=== PATIENT | female | born 1970 | race Hispanic/Latino ===

== ENCOUNTER 2019-01-08 14:36 | Observation (INO) | payer BC ==
[2019-01-08] VITALS (8 sets, daily range): BP systolic 116–148; BP diastolic 61–77
[~2019-01-08] VITALS: Ht 154.9 cm; Wt 88.5 kg
[2019-01-08 15:22] LABS: MEAN CORPUSCULAR HGB CONC 27.1 g/dL (32.0-36.0); MEAN CORPUSCULAR VOLUME 55.5 fL (79-99); NUCLEATED RED BLOOD CELLS 0.1 % (0.0-0.19); PLATELET COUNT (AUTO) 564 K/uL (130-400); RED BLOOD CELL COUNT(AUTO) 4.32 MIL/uL (4.00-5.50); RED CELL DISTRIBUTION WIDTH 21.4 % (11.0-15.5); WHITE BLOOD COUNT (AUTO) 6.5 K/uL (4.8-10.8)
--- NOTE | 2019-01-08 17:25 | NUR ---
TRANSFUSION FIRST UNIT OF PRBCS STARTED AT THIS TIME. SIGNS AND SYMPTOMS TO REPORT EXPLAINED TO PATIENT. PATIENT VERBALIZED UNDERSTANDING.
--- NOTE | 2019-01-08 20:35 | NUR ---
1st unit of blood transfused, no reactions noted. Addendum: 01/08/19 at 2139 by LALIT AGUERO RN Amended: Links added.
--- NOTE | 2019-01-08 21:01 | NUR ---
2nd unit of blood started transfusing, verified blood with Irene Scott - L&Darleen LEWIS Addendum: 01/08/19 at 2141 by LALIT AGUERO RN Amended: Links added.
[2019-01-09] VITALS (8 sets, daily range): BP systolic 111–132; BP diastolic 53–76
--- NOTE | 2019-01-09 00:15 | NUR ---
pt voided 200ml of bloody urine, moderate bleeding noted on peripads, no clots Addendum: 01/09/19 at 0044 by LALIT AGUERO RN Amended: Links added.
--- NOTE | 2019-01-09 00:19 | NUR ---
2nd unit of blood transfusion done, no reactions noted. Addendum: 01/09/19 at 0022 by LALIT AGUERO RN Amended: Links added.
--- NOTE | 2019-01-09 00:37 | NUR ---
3rd unit of blood started, verified with Irene Lechuga RN blood tubing changed prior to transfusion Addendum: 01/09/19 at 0042 by LALIT AGUERO RN Amended: Links added.
[2019-01-09] MEDS ORDERED: SODIUM CHLORIDE 0.9% 1000ML 1,000 ML IV SCH (01:00)
--- NOTE | 2019-01-09 03:55 | NUR ---
3rd unit of blood transfusion done. no reactions noted. Converted IV to saline locked. Addendum: 01/09/19 at 0407 by LALIT AGUERO RN Amended: Links added.
[2019-01-09 06:14] LABS: HEMATOCRIT 30.4 % (36-48)
--- NOTE | 2019-01-09 10:50 | NUR ---
PRBC FIRST UNIT OF PRBC STARTED AT THIS TIME. REEDUCATED PATIENT ON SYMPTOMS TO REPORT. PATIENT VOICED UNDERSTANDING.
--- NOTE | 2019-01-09 11:02 | NUR ---
PRESCRIPTION RX SLIP FOR ORTHONOVUM , DARRELL SHARMA HANDED TO PATIENT. ORTHO NOVUM NOT SUPPLIED IN PHARMACY, TO FILL PRESCRIPTION AND BRING MEDICATION BACK TO PATIENT.
--- NOTE | 2019-01-09 12:55 | NUR ---
TRANSFUSION PRBC TRANSFUSION COMPLETE WITHOUT REACTION. 20G IV REMOVED FROM LEFT FOREARM.
[2019-01-09 14:33] LABS: HEMATOCRIT 31.9 % (36-48)
--- NOTE | 2019-01-09 14:40 | NUR ---
DISCHARGE PATIENT LEFT UNIT VIA WHEELCHAIR WITH BELONGINGS IN HAND. PERSONAL VEHICLE USED FOR TRANSPORTATION. NO COMPLAINTS OR CONCERNS ADDRESSED FROM PATIENT.
== END 2019-01-09 14:40 | disposition home or self-care (01) ==
LOC: WSH 14:36
PROVIDERS: ADMIT Obstetrics & Gynecology; ATTEND Obstetrics & Gynecology
DX: O99.011 Anemia complicating pregnancy, first trimester (principal); O34.11 Maternal care for benign tumor of corpus uteri, first trimester; Z3A.01 Less than 8 weeks gestation of pregnancy
CPT/HCPCS: 36415 ×2; 36430 ×2; 85014 ×2; 85018 ×2; 85027; 86850; 86900; 86901; 86922 ×2; G0378 ×25; J7030 ×2; P9016 ×4

== ENCOUNTER → 2021-06-19 | Outpatient (CLI) | payer OTHER ==
[~2021-06-19] MED LIST: FLUC200T8 PO; FLUT16H NASAL; IRON-6 PO; NORE1TAB30 PO; OLOP2.5D16 OP; PNV1TABL71 PO
== END | disposition home or self-care (01) ==
LOC: RAH 09:13
PROVIDERS: ATTEND Nurse Practitioner Family
DX: Z12.31 Encounter for screening mammogram for malignant neoplasm of breast (principal)
CPT/HCPCS: 77067

== ENCOUNTER 2021-07-02 16:00 | Inpatient (IN) | payer OTHER ==
[~2021-07-02] VITALS: Ht 154.9 cm; Wt 93.4 kg
[~2021-07-02 16:00] MED LIST changes: -FLUC200T8 PO; -OLOP2.5D16 OP
[2021-07-02 16:29] LABS: APPEARANCE,URINE Cloudy (CLEAR); BILIRUBIN,URINE Small (NEGATIVE); COLOR,URINE Dark Yellow (YELLOW); GLUCOSE, URINE (UA) Negative (NEGATIVE); KETONES,URINE Trace mg/dL (NEGATIVE); LEUKOCYTE ESTERASE ,URINE Trace (NEGATIVE); NITRATE,URINE Negative (NEGATIVE); OCCULT BLOOD,URINE Large (NEGATIVE); PROTEIN,URINE Trace mg/dL (NEGATIVE)
[2021-07-02] MEDS ORDERED: MORPHINE 2 MG SYG IVP ONE (16:30)
[2021-07-02] MEDS ORDERED: 0.9%NACL 1000ML 1,000 ML IV ONE ×2 (16:30→18:00)
[2021-07-02] MEDS ORDERED: ONDANSETRON 4MG INJ IVP ONE (16:30)
[2021-07-02 16:34] LABS: BASOPHILS % (AUTO) 0.5 % (0.0-5.0); EOSINOPHILS % (AUTO) 0.3 % (0.0-8.0); HEMATOCRIT 41.1 % (36-48); LYMPHOCYTES % (AUTO) 12.6 % (21.0-51.0); MEAN CORPUSCULAR HEMOGLOBIN 29.3 pg (27.0-33.0); MEAN CORPUSCULAR HGB CONC 33.3 g/dL (32.0-36.0); MONOCYTES % (AUTO) 7.3 % (3.0-13.0); NEUTROPHILS % (AUTO) 78.6 % (40.0-77.0); PLATELET COUNT (AUTO) 348 K/uL (130-400); RED BLOOD CELL COUNT(AUTO) 4.67 MIL/uL (4.00-5.50); RED CELL DISTRIBUTION WIDTH 13.1 % (11.0-15.5); WHITE BLOOD COUNT (AUTO) 18.5 K/uL (4.8-10.8)
[2021-07-02 16:46] LABS: HCG,QUAL RESULT NEGATIVE (NEGATIVE)
[2021-07-02 16:47] LABS: CREATININE 1.2 mg/dL (0.5-1.5); POTASSIUM 3.5 mmol/L (3.5-5.1)
[2021-07-02 16:52] LABS: ALBUMIN 3.4 g/dL (3.5-5.0); BILIRUBIN,TOTAL 0.8 mg/dL (0.2-1.0); TOTAL PROTEIN, SERUM 7.8 g/dL (6.0-8.3)
[2021-07-02 17:02] LABS: BACTERIA,URINE Few /HPF (None Seen); MUCUS,URINE Few LPF (None Seen); SQUAMOUS EPITHELIAL CELL,UR Moderate /HPF (0-2)
[2021-07-02 17:04] LABS: HYALINE CASTS, URINE 0-1 /LPF (0-1 /LPF)
[2021-07-02] MEDS ORDERED: ZOSYN 3.375GM +NS 50ML IV SCH (18:00)
[2021-07-02 19:21] LABS: HEMOGLOBIN A1C 7.1 % (4.0-6.0)
[2021-07-02 19:24] LABS: INR 1.21 (0.85-1.15)
[2021-07-02] MEDS ORDERED: NITROGLYCERIN 0.4 MG SL TAB SL PRN (19:30)
[2021-07-02] MEDS ORDERED: ONDANSETRON 4MG INJ IV PRN (19:30)
[2021-07-02] MEDS ORDERED: ACETAMINOPHEN 650 MG SUPPOSITORY RC PRN ×2 (19:30)
[2021-07-02 19:58] LABS: MAGNESIUM 1.8 mg/dL (1.80-2.40)
[2021-07-02] MEDS: FAMOTIDINE 20MG VIAL IV SCH (20:46)
[2021-07-02] MEDS: 0.9%NACL 1000ML 1,000 ML IV SCH (20:46)
[2021-07-02] MEDS ORDERED: MAGNESIUM 2GM PREMIX 50ML 50 ML IV SCH (21:30)
[2021-07-03] VITALS (26 sets, daily range): BP systolic 96–140; BP diastolic 56–81
[2021-07-03] MEDS ORDERED: CEFAZOLIN SODIUM 1 GM VIAL IVP PRN
[2021-07-03] MEDS ORDERED: 0.9% NACL 250ML IVPB SCH
[2021-07-03] MEDS ORDERED: AZITHROMYCIN 500MG VIAL IVPB SCH
[2021-07-03] MEDS ORDERED: LIDOCAINE PF 100MG/5ML (2%) SYRINGE 5ML ONE (00:24)
[2021-07-03] MEDS ORDERED: SUCCINYLCHOLINE CHLORIDE 20 MG/ML 10 ML VIAL ONE (00:24)
[2021-07-03] MEDS ORDERED: ROCURONIUM 10MG/1ML SYR 10 MG/ML ML ONE ×2 (00:24→02:00)
[2021-07-03] MEDS ORDERED: PROPOFOL 10 MG/ML 20ML VIAL IV ONE (00:24)
[2021-07-03] MEDS ORDERED: MIDAZOLAM HCL 1 MG/ML 2ML VIAL ONE (00:24)
[2021-07-03] MEDS ORDERED: IPRATROPIUM/ALBUTEROL SULFATE 3 ML SOLUTION IH PRN (00:30)
[2021-07-03] MEDS: AZITHROMYCIN 500MG+NS 250ML 250 ML IV SCH (00:45)
[2021-07-03] MEDS ORDERED: FENTANYL CITRATE PF 50 MCG/1 ML 2ML VIAL ONE (01:19)
[2021-07-03] MEDS ORDERED: ONDANSETRON 4MG INJ ONE (01:23)
[2021-07-03] MEDS ORDERED: DEXAMETHASONE SOD PHOSPHATE 4 MG/ML 1ML VIAL ONE (01:23)
[2021-07-03] MEDS ORDERED: ZOSYN 3.375GM +NS 50ML IV SCH (02:00)
[2021-07-03] MEDS ORDERED: ROPIVACAINE 0.5% 5MG/ML 30ML IJ ONE (02:19)
[2021-07-03] MEDS ORDERED: NEOSTIGMINE 5MG/5ML SYR IV ONE (02:25)
[2021-07-03] MEDS ORDERED: GLYCOPYRROLATE 1 MG/5 ML SYRINGE ONE (02:25)
[2021-07-03] MEDS: ZOSYN 3.375GM +NS 50ML IV SCH ×4 (02:30→20:35)
[2021-07-03] MEDS ORDERED: MEPERIDINE-PF 25 MG/ML SYG ONE ×2 (03:13→04:16)
[2021-07-03] MEDS: LACTATED RINGERS 1000ML 1,000 ML IV SCH ×5 (04:44→23:06)
[2021-07-03] MEDS: KETOROLAC 30MG VIAL (30MG/ML) IV PRN ×3 (05:15→20:36)
[2021-07-03] MEDS: 0.9%NACL 1000ML 1,000 ML IV SCH ×2 (05:30→13:15)
[2021-07-03] MEDS: MORPHINE 4 MG SYG IV PRN ×3 (06:50→16:31)
[2021-07-03] MEDS: HEPARIN 5,000 UNIT VIAL SQ SCH ×3 (07:00→23:15)
[2021-07-03 07:44] LABS: ALBUMIN 2.4 g/dL (3.5-5.0); BILIRUBIN,TOTAL 0.9 mg/dL (0.2-1.0); CREATININE 0.7 mg/dL (0.5-1.5); TOTAL PROTEIN, SERUM 5.8 g/dL (6.0-8.3)
[2021-07-03 07:56] LABS: BASOPHILS % (AUTO) 0.1 % (0.0-5.0); HEMATOCRIT 39.1 % (36-48); LYMPHOCYTES % (AUTO) 4.7 % (21.0-51.0); MEAN CORPUSCULAR HEMOGLOBIN 29.3 pg (27.0-33.0); MEAN CORPUSCULAR VOLUME 91.6 fL (79-99); MONOCYTES % (AUTO) 4.6 % (3.0-13.0); NEUTROPHILS % (AUTO) 90.1 % (40.0-77.0); PLATELET COUNT (AUTO) 336 K/uL (130-400); RED BLOOD CELL COUNT(AUTO) 4.27 MIL/uL (4.00-5.50); RED CELL DISTRIBUTION WIDTH 13.2 % (11.0-15.5); WHITE BLOOD COUNT (AUTO) 16.7 K/uL (4.8-10.8)
[2021-07-03] MEDS: FAMOTIDINE 20MG VIAL IV SCH ×2 (09:19→20:35)
[2021-07-03] MEDS ORDERED: PHARMACY COMMUNICATION MISC SCH (10:00)
[2021-07-03] MEDS: ONDANSETRON 4MG INJ IVP PRN ×2 (10:42→20:35)
[2021-07-04] VITALS: BP 118/64
[2021-07-04] MEDS: AZITHROMYCIN 500MG+NS 250ML 250 ML IV SCH (01:01)
[2021-07-04] MEDS: MORPHINE 4 MG SYG IV PRN (01:11)
[2021-07-04 04:00] VITALS: BP 120/59
[2021-07-04] MEDS: ZOSYN 3.375GM +NS 50ML IV SCH ×3 (04:13→21:59)
[2021-07-04] MEDS: LACTATED RINGERS 1000ML 1,000 ML IV SCH ×3 (04:13→20:30)
[2021-07-04 04:53] LABS: BASOPHILS % (AUTO) 0.3 % (0.0-5.0); EOSINOPHILS % (AUTO) 0.3 % (0.0-8.0); HEMATOCRIT 32.1 % (36-48); LYMPHOCYTES % (AUTO) 14.6 % (21.0-51.0); MEAN CORPUSCULAR HGB CONC 30.8 g/dL (32.0-36.0); MEAN CORPUSCULAR VOLUME 94.1 fL (79-99); PLATELET COUNT (AUTO) 276 K/uL (130-400); RED BLOOD CELL COUNT(AUTO) 3.41 MIL/uL (4.00-5.50); RED CELL DISTRIBUTION WIDTH 13.4 % (11.0-15.5); WHITE BLOOD COUNT (AUTO) 11.9 K/uL (4.8-10.8)
[2021-07-04 05:05] LABS: CREATININE 0.7 mg/dL (0.5-1.5)
[2021-07-04 08:02] VITALS: BP 128/71
[2021-07-04] MEDS ORDERED: MORPHINE 2 MG SYG IV PRN (09:30)
[2021-07-04] MEDS: FAMOTIDINE 20MG VIAL IV SCH ×2 (09:56→20:38)
[2021-07-04] MEDS: KETOROLAC 30MG VIAL (30MG/ML) IV PRN ×2 (09:57→20:38)
[2021-07-04] MEDS: HEPARIN 5,000 UNIT VIAL SQ SCH (10:17)
[2021-07-04 11:07] VITALS: BP 128/68
[2021-07-04] MEDS: ARTIFICAL TEARS SOL 15 ML OU SCH (14:38)
[2021-07-04 15:27] VITALS: BP 126/66
[2021-07-04] MEDS ORDERED: CETIRIZINE HCL 5 MG TABLET PO SCH (18:00)
[2021-07-04 20:00] VITALS: BP 136/76
[2021-07-05] VITALS: BP 112/79
[2021-07-05] MEDS: LACTATED RINGERS 1000ML 1,000 ML IV SCH ×4 (01:38→20:17)
[2021-07-05 04:00] VITALS: BP 119/75
[2021-07-05] MEDS: ZOSYN 3.375GM +NS 50ML IV SCH ×3 (05:19→20:17)
[2021-07-05 05:59] LABS: BASOPHILS % (AUTO) 0.4 % (0.0-5.0); EOSINOPHILS % (AUTO) 1.8 % (0.0-8.0); HEMATOCRIT 27.9 % (36-48); LYMPHOCYTES % (AUTO) 15.1 % (21.0-51.0); MEAN CORPUSCULAR HEMOGLOBIN 29.1 pg (27.0-33.0); MEAN CORPUSCULAR HGB CONC 31.5 g/dL (32.0-36.0); MEAN CORPUSCULAR VOLUME 92.4 fL (79-99); NEUTROPHILS % (AUTO) 72.8 % (40.0-77.0); PLATELET COUNT (AUTO) 288 K/uL (130-400); RED BLOOD CELL COUNT(AUTO) 3.02 MIL/uL (4.00-5.50); RED CELL DISTRIBUTION WIDTH 13.4 % (11.0-15.5); WHITE BLOOD COUNT (AUTO) 9.3 K/uL (4.8-10.8)
[2021-07-05 06:12] LABS: CREATININE 0.5 mg/dL (0.5-1.5); MAGNESIUM 2.2 mg/dL (1.80-2.40); POTASSIUM 3.4 mmol/L (3.5-5.1)
[2021-07-05 08:00] VITALS: BP 127/69
[2021-07-05] MEDS ORDERED: POTASSIUM CHLORIDE 20MEQ/100ML 100 ML IV PRN (09:30)
[2021-07-05] MEDS: CETIRIZINE HCL 5 MG TABLET PO SCH (10:06)
[2021-07-05] MEDS: FAMOTIDINE 20MG VIAL IV SCH ×2 (10:06→20:17)
[2021-07-05] MEDS: KETOROLAC 30MG VIAL (30MG/ML) IV PRN ×2 (10:43→15:34)
[2021-07-05 11:04] LABS: APPEARANCE,URINE Clear (CLEAR); BILIRUBIN,URINE Small (NEGATIVE); COLOR,URINE Dark Yellow (YELLOW); GLUCOSE, URINE (UA) Negative (NEGATIVE); KETONES,URINE >=160 mg/dL (NEGATIVE); LEUKOCYTE ESTERASE ,URINE Small (NEGATIVE); NITRATE,URINE Negative (NEGATIVE); OCCULT BLOOD,URINE Large (NEGATIVE); PROTEIN,URINE POS 1+ mg/dL (NEGATIVE)
[2021-07-05 11:15] LABS: BACTERIA,URINE Rare /HPF (None Seen); RBC,URINE 26-50 /HPF (0-1)
[2021-07-05 11:16] LABS: SQUAMOUS EPITHELIAL CELL,UR 0-2 /HPF (0-2)
[2021-07-05 12:00] VITALS: BP 119/72
[2021-07-05] MEDS: ARTIFICAL TEARS SOL 15 ML OU SCH (13:30)
[2021-07-05 16:00] VITALS: BP 136/70
[2021-07-05] MEDS: FLUCONAZOLE 200 MG/NS 100 ML 100 ML IV SCH (16:23)
[2021-07-05 19:00] VITALS: BP 134/71
[2021-07-05] MEDS ORDERED: OLOP2.5D16 OP (19:35)
[2021-07-06] VITALS (7 sets, daily range): BP systolic 127–149; BP diastolic 71–80
[2021-07-06] MEDS: LACTATED RINGERS 1000ML 1,000 ML IV SCH ×3 (03:36→21:11)
[2021-07-06] MEDS: ZOSYN 3.375GM +NS 50ML IV SCH ×3 (04:19→21:10)
[2021-07-06 06:22] LABS: BASOPHILS % (AUTO) 0.4 % (0.0-5.0); EOSINOPHILS % (AUTO) 3.9 % (0.0-8.0); HEMATOCRIT 27.9 % (36-48); LYMPHOCYTES % (AUTO) 18.7 % (21.0-51.0); MEAN CORPUSCULAR HEMOGLOBIN 28.9 pg (27.0-33.0); MEAN CORPUSCULAR HGB CONC 30.8 g/dL (32.0-36.0); MEAN CORPUSCULAR VOLUME 93.6 fL (79-99); MONOCYTES % (AUTO) 6.6 % (3.0-13.0); NEUTROPHILS % (AUTO) 68.7 % (40.0-77.0); NUCLEATED RED BLOOD CELLS 0.3 % (0.0-0.19); PLATELET COUNT (AUTO) 294 K/uL (130-400); RED BLOOD CELL COUNT(AUTO) 2.98 MIL/uL (4.00-5.50); RED CELL DISTRIBUTION WIDTH 13.1 % (11.0-15.5); WHITE BLOOD COUNT (AUTO) 7.7 K/uL (4.8-10.8)
[2021-07-06 06:35] LABS: CREATININE 0.5 mg/dL (0.5-1.5); MAGNESIUM 1.7 mg/dL (1.80-2.40); POTASSIUM 3.4 mmol/L (3.5-5.1)
[2021-07-06] MEDS ORDERED: LIDOCAINE HCL-MPF 1% 2ML VIAL ONE (11:36)
[2021-07-06] MEDS: CETIRIZINE HCL 5 MG TABLET PO SCH (11:44)
[2021-07-06] MEDS: FAMOTIDINE 20MG VIAL IV SCH ×2 (11:44→21:11)
[2021-07-06] MEDS: ARTIFICAL TEARS SOL 15 ML OU SCH (13:30)
[2021-07-06] MEDS: FLUCONAZOLE 200 MG/NS 100 ML 100 ML IV SCH (17:54)
[2021-07-07 03:40] VITALS: BP 126/74
[2021-07-07] MEDS: ZOSYN 3.375GM +NS 50ML IV SCH (04:16)
[2021-07-07 06:16] LABS: BASOPHILS % (AUTO) 0.3 % (0.0-5.0); EOSINOPHILS % (AUTO) 3.7 % (0.0-8.0); HEMATOCRIT 28.6 % (36-48); LYMPHOCYTES % (AUTO) 22.9 % (21.0-51.0); MEAN CORPUSCULAR HEMOGLOBIN 28.4 pg (27.0-33.0); MEAN CORPUSCULAR HGB CONC 31.5 g/dL (32.0-36.0); MEAN CORPUSCULAR VOLUME 90.2 fL (79-99); MONOCYTES % (AUTO) 8.5 % (3.0-13.0); NEUTROPHILS % (AUTO) 61.8 % (40.0-77.0); NUCLEATED RED BLOOD CELLS 0.3 % (0.0-0.19); PLATELET COUNT (AUTO) 362 K/uL (130-400); RED BLOOD CELL COUNT(AUTO) 3.17 MIL/uL (4.00-5.50); WHITE BLOOD COUNT (AUTO) 6.8 K/uL (4.8-10.8)
[2021-07-07 06:32] LABS: CREATININE 0.5 mg/dL (0.5-1.5); POTASSIUM 3.4 mmol/L (3.5-5.1)
[2021-07-07 07:40] VITALS: BP 132/71
[2021-07-07] MEDS ORDERED: ENOXAPARIN SODIUM 30 MG/0.3 ML SQ SCH (09:00)
[2021-07-07 11:30] VITALS: BP 121/77
[2021-07-07] MEDS ORDERED: FLUC200T8 PO (15:42)
== END 2021-07-07 16:20 | disposition home or self-care (01) | DRG 853 ==
LOC: EDH 16:00 → OBSVTOIN 19:01 → INTOOBSV 19:01 → EDHIP 19:01 → PAH.CVR 07-03 08:28 → 3BH 07-03 12:25
PROVIDERS: ADMIT Internal Medicine; ATTEND Internal Medicine
PROC: 0D9670Z Drainage of Stomach with Drainage Device, Via Natural or Artificial Opening (ICD-10-PCS; 2021-07-02)
PROC: 0DB80ZZ Excision of Small Intestine, Open Approach (ICD-10-PCS; principal; 2021-07-03 01:20)
PROC: 0WQF0ZZ Repair Abdominal Wall, Open Approach (ICD-10-PCS; 2021-07-03 01:20)
DX: A41.9 Sepsis, unspecified organism (principal); K65.9 Peritonitis, unspecified; K63.1 Perforation of intestine (nontraumatic); K43.0 Incisional hernia with obstruction, without gangrene; E87.1 Hypo-osmolality and hyponatremia; Z68.38 Body mass index [BMI] 38.0-38.9, adult; Z20.822 Contact with and (suspected) exposure to COVID-19; K21.9 Gastro-esophageal reflux disease without esophagitis; K44.9 Diaphragmatic hernia without obstruction or gangrene; K31.89 Other diseases of stomach and duodenum; I10 Essential (primary) hypertension; D50.9 Iron deficiency anemia, unspecified; R53.81 Other malaise; E66.9 Obesity, unspecified; E83.42 Hypomagnesemia; E87.6 Hypokalemia; E11.9 Type 2 diabetes mellitus without complications; M47.815 Spondylosis without myelopathy or radiculopathy, thoracolumbar region; N83.202 Unspecified ovarian cyst, left side; K57.90 Diverticulosis of intestine, part unspecified, without perforation or abscess without bleeding; Z90.710 Acquired absence of both cervix and uterus; Z86.32 Personal history of gestational diabetes
CPT/HCPCS: 36415; 71045; 74018; 74176; 80048; 80053; 81001; 81025; 82550; 82728; 82948; 83036; 83540; 83550; 83605; 83690; 83735; 84145; 84443; 84484; 85025; 85610; 85730; 86140; 86850; 86900; 86901; 87040; 87088; 87635; 93005; 97039; A4344; G0378; J0330; J0456; J0690; J1100; J1450; J1644; J1885; J2001; J2175; J2250; J2270; J2405; J2543; J2704; J2710; J2795; J3010; J3475; J3480; J3490; J7030; J7120

== ENCOUNTER → 2024-10-01 | Outpatient (CLI) | payer OTHER ==
[~2024-10-01] MED LIST changes: +FLUC200T96 PO; +OLOP2.5D16 OP
--- NOTE | 2024-10-01 09:55 | HMCIMG ---
ULTRASOUND ABDOMEN COMPLETE INDICATION: Abdominal Pain COMPARISON: 07/02/2021 CT abdomen and pelvis.. FINDINGS: The liver is enlarged and increased in echogenicity; no focal lesion demonstrated. Liver length is measured at 18.4 cm. The common bile duct caliber measures 6.0 mm. No evidence for calculi, sludge or pericholecystic fluid. No sonographic Keane's sign elicited by the ultrasound double ending machine operator. Wall thickness measures 3.0 mm. The spleen is normal in size and echotexture. The spleen measures 9.1 cm. Visible portions of the pancreas appear unremarkable. The right kidney measures 9.8 x 4.9 x 4.3 cm,and is normal in echogenicity, without evidence for hydronephrosis or shadowing stones. 4.9 cm simple cyst at the upper pole of the right kidney. The left kidney measures 9.4 x 5.8 x 5.4 cm,and is normal in echogenicity, without evidence for hydronephrosis or shadowing stones. Visible portions of the abdominal aorta are within normal limits. Visible portions of the inferior vena cava are within normal limits. No free fluid demonstrated. IMPRESSION: Findings suggesting hepatomegaly and hepatic steatosis or other underlying hepatocellular disease process. 4.9 cm simple right renal cyst.
--- NOTE | 2024-10-01 12:07 | HMCIMG ---
THYROID ULTRASOUND INDICATION: Goiter COMPARISON: None TECHNIQUE: Multiplanar sonographic images of the thyroid gland were obtained earlier in real-time using grayscale and color Doppler technique, and subsequently made available for review. FINDINGS: The right thyroid lobe measures 3.9 x 1.5 x 1.0 cm, and appears normal in echotexture. No nodules or masses identified. Right thyroid lobe vascularity appears normal. Isthmus measures 0.5 cm in thickness. The left thyroid lobe measures 3.6 x 1.5 x 1.0 cm, and appears normal in echotexture. 0.3 cm colloid cyst within the upper pole of the left thyroid lobe. 0.5 cm hypoechoic nonvascular solid nodule within the posterior margin of the left thyroid lobe at the lower pole without any punctate echogenic foci associated. Left thyroid lobe vascularity appears normal. IMPRESSION: Subcentimeter left thyroid lobe nodule. Follow-up is only recommended if or when greater than or equal to 1 cm.
== END | disposition home or self-care (01) ==
LOC: RAH 08:42
PROVIDERS: ATTEND Obstetrics & Gynecology
DX: Z12.31 Encounter for screening mammogram for malignant neoplasm of breast (principal); E04.9 Nontoxic goiter, unspecified; N28.1 Cyst of kidney, acquired; N28.9 Disorder of kidney and ureter, unspecified; E04.1 Nontoxic single thyroid nodule
CPT/HCPCS: 76536; 76700; 77067